=== PATIENT | female | born 1985 | race American Indian/Alaskan Native ===

== ENCOUNTER 2019-08-04 16:29 | Outpatient (CLI) | payer OTHER ==
[2019-08-04] MEDS ORDERED: LACTATED RINGERS 500 ML IV ONE (17:54)
[2019-08-04 18:17] LABS: Bacteria,Urine 1+ /HPF (Negative); Bilirubin,Urine NEG (Negative); Blood,Urine NEG (Negative); Color,Urine Yellow (Yellow); Mucus,Urine 1+ /HPF; Protein,Urine <15 mg/dL mg/dL (Negative); Urobilinogen,Urine < 2.0 mg/dL (<2.0)
[2019-08-04] MEDS ORDERED: cefTRIAXone/NS 1 GM/50 ML 1 GM/50 ML BAG IV ONE (19:00)
[2019-08-04 19:36] VITALS: BP 115/73
== END 2019-08-04 19:50 | disposition home or self-care (01) ==
LOC: TRG 16:29
PROVIDERS: ATTEND Obstetrics & Gynecology
DX: O26.892 Other specified pregnancy related conditions, second trimester (principal); R52 Pain, unspecified; O47.02 False labor before 37 completed weeks of gestation, second trimester; Z3A.24 24 weeks gestation of pregnancy
CPT/HCPCS: 81001; 87086; 96365; J0696; J7120

== ENCOUNTER 2019-11-13 09:45 | Inpatient (IN) | payer OTHER ==
--- NOTE | 2019-11-13 08:16 | History and Physical Report ---
History of Present Illness Date of examination: 11/13/19 Date of admission: 11/13/19 Chief complaint: scheduled repeat History of present illness: This is a 34 yo EDC 11/18/19 her for repeat csec. No complaints. hx of trich treated in this . 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 Past History Past Medical History: no pertinent history Past Surgical History: section (x2), other (hernia repair) [employer] History: herpes, trichomonas Social history: single. denies: smoking, alcohol abuse, prescription drug abuse - Obstetrical History Expected Date of Delivery: 11/18/19 Actual Gestation: 39 Week(s) 2 Day(s) : 8 Para: 4 Hx # Term Pregnancies: 4 Number of Pregnancies: 0 Spontaneous Abortions: 1 Induced : 1 Number of Living Children: 4 Medications and Allergies Allergies Allergy/AdvReac Type Severity Reaction Status Date / Time No Known Allergies Allergy Unverified 08/04/19 17:53 Review of Systems All systems: negative - Physical Exam Breasts: Positive: normal Cardiovascular: Regular rate, Normal S1 Lungs: Positive: Clear to auscultation, Normal air movement Abdomen: Positive: normal appearance, soft, normal bowel sounds. Negative: distention, tenderness, guarding Genitourinary (Female): Positive: normal external genitalia, normal perenium Vagina: Positive: normal moisture Uterus: Positive: normal size, normal contour Anus/Rectum: Positive: normal perianal skin Extremities: Positive: normal Deep Tendon Reflex Grade: Normal +2 - Obstetrical FHR: category 1 Uterine Contraction Pattern: Regular Results All other labs normal. Assessment and Plan A/P Planned repeat csec discussed r/b/a of procedure proceed with repeat csec x 3
[~2019-11-13 09:45] MED LIST: FAMOTIDINE 20 MG/2 ML INJ IV ONE; OXYTOCIN 20 UNIT/1000ML DRIP 20 UNITS/1,000 ML BAG IV SCH
[2019-11-13] MEDS ORDERED: ceFAZolin/Water 2 GM/20 ML 2 GM/20 ML SYRINGE IV NR (10:00)
[2019-11-13] MEDS ORDERED: BICITRA ORAL LIQD 30ML PO ONE (10:00)
[2019-11-13] MEDS ORDERED: METOCLOPRAMIDE 10 MG/2 ML INJ IV ONE (10:00)
[2019-11-13] MEDS ORDERED: FAMOTIDINE 20 MG/2 ML INJ IV ONE (10:00)
[2019-11-13] MEDS: LACTATED RINGERS 1,000 ML IV SCH ×4 (10:25→16:00)
[2019-11-13 10:41] LABS: Basophils % (Auto) 0.8 % (0.0-1.8); Eosinophils # (Auto) 0.1 K/mm3 (0.0-0.4); Eosinophils % (Auto) 1.5 % (0.0-4.3); Hematocrit 34.2 % (30.3-42.9); Hemoglobin 11.6 gm/dl (10.1-14.3); Lymphocytes # (Auto) 2.1 K/mm3 (1.2-5.4); Lymphocytes % (Auto) 34.1 % (13.4-35.0); Mean Corpuscular HGB Conc 34 % (30-34); Mean Corpuscular Volume 85 fl (79-97); Monocytes # (Auto) 0.7 K/mm3 (0.0-0.8); Monocytes % (Auto) 11.2 % (0.0-7.3); Platelet Count 194 K/mm3 (140-440); Red Blood Count 4.02 M/mm3 (3.65-5.03); Red Cell Distribution Width 13.8 % (13.2-15.2)
--- NOTE | 2019-11-13 11:26 | Anesthesia Consultation ---
Anesthesia Consult and Med Hx Date of service: 11/13/19 - Airway Anesthetic Teeth Evaluation: Good ROM Head & Neck: Adequate Mental/Hyoid Distance: Adequate Mallampati Class: Class II Intubation Access Assessment: Good - Pulmonary Exam CTA: Yes - Cardiac Exam Cardiac Exam: RRR - Pre-Operative Health Status ASA Pre-Surgery Classification: ASA2 Proposed Anesthetic Plan: Spinal - Pulmonary Hx Asthma: No - Cardiovascular System Hx Hypertension: No - Central Nervous System Hx Seizures: No Hx Psychiatric Problems: No - Endocrine Hx Renal Disease: No Hx Hypothyroidism: No Hx Hyperthyroidism: No - Hematic Hx Anemia: No Hx Sickle Cell Disease: No - Other Systems Hx Alcohol Use: No
[2019-11-13] MEDS ORDERED: NALOXONE 0.4 MG/1 ML INJ IV PRN ×2 (11:27→12:43)
[2019-11-13] MEDS ORDERED: PROMETHAZINE 25 MG RECT SUPP PR PRN (11:27)
[2019-11-13] MEDS ORDERED: ONDANSETRON 4 MG/2 ML INJ IV PRN (11:27)
[2019-11-13] MEDS ORDERED: HYDROmorphone 1 MG/1 ML INJ IV PRN (11:27)
[2019-11-13] MEDS ORDERED: PROMETHAZINE 25 MG TAB PO PRN (11:27)
--- NOTE | 2019-11-13 11:27 | Anesthesia Day of Surgery ---
Anesthesia Day of Surgery - Day of Surgery Patient Examined: Yes Patient H&P Reviewed: Yes Patient is NPO: Yes
[2019-11-13] MEDS ORDERED: DEXMEDETOMIDINE 200 MCG/2 ML VIAL IV ONE (11:32)
[2019-11-13 11:53] LABS: Hematocrit 29.3 % (30.3-42.9); Mean Corpuscular HGB Conc 34 % (30-34); Mean Corpuscular Volume 85 fl (79-97); Platelet Count 169 K/mm3 (140-440); Red Blood Count 3.46 M/mm3 (3.65-5.03); Red Cell Distribution Width 13.8 % (13.2-15.2)
[2019-11-13] MEDS ORDERED: KETAMINE/STERILE WATER 50 MG/ML SYRINGE ONE (12:14)
[2019-11-13 12:18] LABS: Bilirubin,Urine NEG (Negative); Blood,Urine NEG (Negative); Color,Urine Yellow (Yellow); Mucus,Urine FEW /HPF; Protein,Urine <15 mg/dL mg/dL (Negative); Urobilinogen,Urine < 2.0 mg/dL (<2.0)
[2019-11-13 12:19] LABS: Bacteria,Urine 1+ /HPF (Negative)
[2019-11-13 12:21] LABS: Alanine Aminotransferase 13 units/L (7-56); Uric Acid 6.3 mg/dL (3.5-7.6)
[2019-11-13] MEDS ORDERED: dexAMETHasone 20 MG/5 ML VIAL ONE (12:40)
[2019-11-13] MEDS ORDERED: diphenhydrAMINE 50 MG/ML VIAL ONE (12:40)
[2019-11-13] MEDS ORDERED: KETOROLAC 30 MG/1 ML INJ ONE (12:40)
[2019-11-13] MEDS ORDERED: PHENYLEPHRINE/NS 1,000 MCG/10 ML SYRINGE (OR USE) IV ONE (12:40)
[2019-11-13] MEDS ORDERED: KETOROLAC 30 MG/1 ML INJ IV PRN ×2 (12:43)
[2019-11-13] MEDS ORDERED: ACETAMINOPHEN 325 MG TAB PO PRN (12:43)
[2019-11-13] MEDS ORDERED: HYDROCORTISONE 25 MG RECTAL SUPP PR PRN (12:43)
[2019-11-13] MEDS ORDERED: MORPHINE 4 MG/1 ML INJ IV PRN (12:43)
[2019-11-13] MEDS ORDERED: LANOLIN/ZINC/DIMETHICONE (LANSINOH) 7 GM TP PRN (12:43)
[2019-11-13] MEDS ORDERED: WITCH HAZEL/ GLYCERIN PAD TP PRN (12:43)
[2019-11-13] MEDS ORDERED: MAGNESIUM HYDROXIDE (MOM) ORAL LIQD UDC PO PRN (12:43)
[2019-11-13] MEDS ORDERED: oxyCODONE /ACETAMINOPHEN 5-325MG TAB PO PRN (12:43)
[2019-11-13] MEDS ORDERED: SENNOSIDES 8.6 MG TAB PO PRN (12:43)
--- NOTE | 2019-11-13 12:46 | Operative Report ---
Operative Report Operative Report: Date of procedure: November 13, 2019 Preoperative diagnosis: 1) IUP at 39 weeks 2) preevious x2 3) Postoperative diagnosis: Same Procedure: Primary low transverse section Surgeon: Rebecca Guzman MD Anesthesia: Regional Findings: 1) Viable female , Apgars 8 and 9, weight 7 pounds 4 oz in cephalic presentation. 2) Normal-appearing uterus ovaries and tubes Estimated blood loss: 800 mL IV fluids: 800 mL Urine output: 50 mL, clear at the end of the procedure Drains: Riley to gravity Specimens: Placenta to pathology Complications:None. Counts correct x 3 Disposition: Stable to PACU Indication for procedure: Pt is a 34 year old G8ap4 at 38w1d with hs cof previous csec x2 here for scheduled repeat Operation in detail: After the risks, benefits, alternatives and complications were explained to the patient she gave informed consent for the procedure. She was subsequently taken to the operating room where regional anesthesia was noted to be adequate. She was subsequently placed in the dorsal supine position with leftward tilt and prepped and draped in a normal sterile fashion. heart tones were noted prior to incision. A timeout was performed. A Pfannenstiel skin incision was made with the knife and carried down to the layer of the fascia with the Bovie. The fascia was incised in the midline and the fascial incision was extended bilaterally with the Bovie. The fascial incision was then stretched. The rectus muscles were then in the midline and partially transected for adequate visualization. The peritoneum was then entered bluntly. The peritoneal incision was extended with good visualization of the bladder. The peritoneal incision was then stretched. An Mohan retractor was placed. The bladder blade was then placed. A transverse incision was made in the lower uterine segment with a knife and extended bilaterally with the bandage scissors. Amniotomy was performed with egress of clear fluid. head delivered with ease, followed by shoulders and body. bulb suctioned at delivery. Cord clamped and cut. handed to NICU staff in attendance. The placenta was then delivered manually. The uterus was then exteriorized and cleared of all clots and debris. The hysterotomy was then reapproximated with 0 Vicryl in a running locked fashion. A second layer of the same suture was used in imbricating fashion. The hysterotomy was inspected and hemostasis was noted. The gutters were irrigated and cleared of all clots and debris. The hysterotomy was again inspected and noted to be hemostatic. Surgicel was placed over the hysterotomy. The uterus was placed back into the peritoneal cavity. The Mohan retractor was removed. The peritoneum was reapproximated with 2-0 Vicryl in a running fashion incorporating the rectus muscles. Surgicel was placed over the rectus muscles. The fascia was reapproximated with 0 PDS in a running fashion. The subcutaneous tissue was reapproximated with 0-Vicryl in a running fashion. The skin was reapproximated with 4-0 Vicryl in a subcuticular fashion. The incision was then covered with steri strips and a pressure dressing. The procedure was then ended. The patient tolerated the procedure well and was taken to the PACU in stable condition. All instrument, lap, and needle counts were correct 3.
--- NOTE | 2019-11-13 12:56 | Procedure Note ---
OB Delivery Note - Delivery Date of Delivery: 11/13/19 Surgeon: SANYA KRUGER Estimated blood loss: other (800cc) - Section Preop diagnosis: repeat Postop diagnosis: same section procedure: section Disposition: PACU Complications: none Narrative: see op note - Infant A at 1 minute: 8 at 5 minutes: 9 Gender: Female (7 pounds 4 oz)
[2019-11-13] MEDS ORDERED: OXYTOCIN 20 UNIT/1000ML DRIP 20 UNITS/1,000 ML BAG IV SCH ×2 (13:00→16:00)
[2019-11-13] MEDS ORDERED: D5W/LACTATED RINGERS 1,000 ML IV SCH (13:00)
--- NOTE | 2019-11-13 13:15 | Progress Note ---
Spinal Anesthesia Block - Spinal Anesthesia Block Start Time: 11:52 Stop Time: 11:57 Performed by:: DERICK SEBASTIAN Procedure: Spinal anesthesia block is being performed for [repeat ]. H&P, labs have been reviewed. Patient's questions and concerns have been answered. Informed consent has been performed. Timeout has was performed. Patient in sitting position on side of bed. Sterile prep and drape was performed. 3 mL 1% lidocaine skin wheal at L 3-L 4. Needle introducer advanced. 25-gauge spinal needle advanced, clear CSF negative blood. 1.5 mL 0.75% bupivacaine with 10 mcg Precedex spinal dose was given. All needles removed. Patient tolerated procedure well.
[2019-11-13] MEDS ORDERED: MAGNESIUM SULFATE 4 GM/100 ML BAG IV ONE (15:07)
[2019-11-13] MEDS ORDERED: miSOPROStol 200 MCG TAB ONE (15:59)
[2019-11-13] MEDS ORDERED: fentaNYL 100 MCG/2 ML INJ ONE (16:00)
[2019-11-13] MEDS ORDERED: MAGNESIUM SULFATE 40GM/1000ML 40 GM/1,000 ML BAG IV SCH (16:00)
[2019-11-13] MEDS ORDERED: miSOPROStol 200 MCG TAB PR ONE (16:00)
[2019-11-13 16:22] LABS: Hematocrit 28.3 % (30.3-42.9); Hemoglobin 9.6 gm/dl (10.1-14.3); Mean Corpuscular HGB Conc 34 % (30-34); Mean Corpuscular Volume 86 fl (79-97); Platelet Count 191 K/mm3 (140-440); Red Blood Count 3.31 M/mm3 (3.65-5.03); Red Cell Distribution Width 13.7 % (13.2-15.2)
[2019-11-13] MEDS ORDERED: LACTATED RINGERS 1,000 ML IV SCH (17:29)
--- NOTE | 2019-11-13 21:43 | Post Anesthesia Evaluation ---
- Post Anesthesia Evaluation Patient Participated: Yes Airway Patent: Yes Stable Respiratory Function: Yes Nausea/Vomiting: No Temp > 96.8F: Yes Pain Manageable: Yes Adequeate Hydration: Yes Anesthesia Complications: No Block Receding Appropriately: Yes Patient on Ventilator: No
[2019-11-14 01:38] LABS: Hematocrit 24.1 % (30.3-42.9); Hemoglobin 8.2 gm/dl (10.1-14.3)
[2019-11-14] MEDS: MORPHINE 2 MG/1 ML INJ IV PRN ×2 (03:16→19:51)
--- NOTE | 2019-11-14 07:08 | Progress Note ---
Assessment and Plan A/P POD#1 repeat x3 Hypertension on ma for 24 hrs PIH w/u neg transfer after 12p to [facility] Subjective - Subjective Date of service: 11/14/19 Principal diagnosis: , pree Interval history: This is a 34 yo EDC 11/18/19 her for repeat csec. No complaints. hx of trich treated in this . 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 Patient reports: appetite normal, voiding normally, pain well controlled, flatus [place]: doing well Objective - Vital Signs Latest vital signs: Vital Signs Temp Pulse Resp BP BP Pulse Ox 11/14/19 07:01 69 92 11/14/19 06:56 71 100 11/14/19 06:51 75 100 11/14/19 06:46 71 99 11/14/19 06:41 74 99 11/14/19 06:36 70 100 11/14/19 06:31 72 99 11/14/19 06:26 73 99 11/14/19 06:21 83 100 11/14/19 06:18 71 129/85 11/14/19 06:16 74 98 11/14/19 06:11 70 99 11/14/19 06:06 71 98 11/14/19 06:03 62 118/79 11/14/19 06:01 63 99 11/14/19 05:56 73 100 11/14/19 05:51 62 99 11/14/19 05:48 67 117/76 11/14/19 05:46 78 99 11/14/19 05:41 71 99 11/14/19 05:36 65 99 11/14/19 05:33 71 117/76 11/14/19 05:31 68 99 11/14/19 05:26 73 99 11/14/19 05:21 68 100 11/14/19 05:18 65 119/74 11/14/19 05:16 69 98 11/14/19 05:11 68 99 11/14/19 05:06 66 99 11/14/19 05:03 74 116/74 11/14/19 05:01 73 98 11/14/19 04:56 68 99 11/14/19 04:51 70 99 11/14/19 04:48 69 116/74 11/14/19 04:46 74 98 11/14/19 04:41 73 99 05 04:36 71 100 05 04:33 76 119/75 11/14/19 04:31 74 99 05 04:26 88 98 11/14/19 04:21 80 99 05 04:18 74 120/74 05 04:16 79 98 05 04:11 77 98 11/14/19 04:06 80 97 11/14/19 04:03 81 117/71 11/14/19 04:01 84 96 11/14/19 03:56 85 97 11/14/19 03:51 80 98 11/14/19 03:48 76 115/69 11/14/19 03:46 75 97 11/14/19 03:41 74 98 11/14/19 03:36 75 97 11/14/19 03:33 81 116/69 11/14/19 03:31 80 98 11/14/19 03:26 83 96 11/14/19 03:21 87 99 11/14/19 03:18 75 122/73 11/14/19 03:16 78 99 11/14/19 03:11 83 98 11/14/19 03:06 64 97 11/14/19 03:04 91 H 109/60 11/14/19 03:03 90 94 11/14/19 03:01 99 H 97 11/14/19 02:56 80 98 11/14/19 02:51 77 98 11/14/19 02:48 75 130/74 11/14/19 02:46 75 97 11/14/19 02:41 75 98 11/14/19 02:36 71 97 11/14/19 02:33 76 126/75 11/14/19 02:31 79 99 05 02:26 74 96 11/14/19 02:21 89 98 11/14/19 02:18 72 123/76 11/14/19 02:16 73 97 11/14/19 02:11 82 98 11/14/19 02:06 72 98 11/14/19 02:03 80 119/75 11/14/19 02:01 78 98 05 01:56 73 98 05 01:51 78 100 11/14/19 01:48 84 115/73 11/14/19 01:46 90 97 11/14/19 01:41 82 97 11/14/19 01:36 77 97 11/14/19 01:33 82 118/72 11/14/19 01:31 73 98 11/14/19 01:26 77 98 11/14/19 01:21 77 97 11/14/19 01:18 80 111/68 11/14/19 01:16 81 97 11/14/19 01:11 76 99 11/14/19 01:06 88 99 11/14/19 01:03 86 102/59 11/14/19 01:01 88 99 11/14/19 00:56 88 99 11/14/19 00:51 93 H 99 11/14/19 00:48 86 121/74 11/14/19 00:46 87 97 11/14/19 00:41 82 97 11/14/19 00:36 91 H 99 11/14/19 00:33 81 123/74 11/14/19 00:31 82 98 11/14/19 00:26 77 98 11/14/19 00:21 97 H 99 11/14/19 00:18 83 121/72 11/14/19 00:16 86 99 11/14/19 00:11 78 98 11/14/19 00:06 87 98 11/14/19 00:03 88 127/80 11/14/19 00:01 78 98 11/13/19 23:56 74 99 11/13/19 23:51 72 99 11/13/19 23:48 71 120/73 11/13/19 23:46 75 98 11/13/19 23:41 70 98 11/13/19 23:36 70 98 11/13/19 23:33 68 123/80 05 23:31 65 100 11/13/19 23:26 85 97 11/13/19 23:23 83 94 11/13/19 23:21 86 99 11/13/19 23:19 95 H 78/48 11/13/19 23:16 91 H 97 11/13/19 23:11 93 H 97 11/13/19 23:06 95 H 98 11/13/19 23:03 97 H 106/64 11/13/19 23:01 104 H 99 11/13/19 22:56 83 98 11/13/19 22:51 76 98 11/13/19 22:48 105 H 114/68 11/13/19 22:46 105 H 98 11/13/19 22:41 89 97 11/13/19 22:36 82 97 11/13/19 22:33 83 127/75 11/13/19 22:31 88 97 11/13/19 22:26 85 97 11/13/19 22:21 93 H 98 11/13/19 22:18 79 123/78 11/13/19 22:16 82 98 11/13/19 22:11 77 98 11/13/19 22:06 74 97 11/13/19 22:03 81 115/78 11/13/19 22:01 84 98 11/13/19 21:56 74 99 11/13/19 21:51 89 95 11/13/19 21:48 76 117/78 94 11/13/19 21:46 94 H 98 11/13/19 21:41 100 H 99 11/13/19 21:36 76 98 11/13/19 21:33 81 118/74 11/13/19 21:31 87 98 11/13/19 21:26 90 97 11/13/19 21:21 89 97 11/13/19 21:18 85 123/77 11/13/19 21:16 84 98 11/13/19 21:11 85 98 11/13/19 21:06 86 98 11/13/19 21:03 73 122/80 11/13/19 21:01 73 98 11/13/19 20:56 87 98 11/13/19 20:51 86 99 11/13/19 20:48 82 119/76 11/13/19 20:46 84 99 11/13/19 20:41 78 98 11/13/19 20:36 76 99 11/13/19 20:33 84 117/73 11/13/19 20:31 80 99 11/13/19 20:26 75 97 11/13/19 20:21 81 96 11/13/19 20:18 85 117/72 11/13/19 20:16 85 97 11/13/19 20:11 90 98 11/13/19 20:06 86 99 11/13/19 20:04 98.6 F 83 18 121/80 11/13/19 20:03 77 121/80 0511/20 20:02 87 94 11/13/19 20:01 83 99 11/13/19 19:56 75 99 11/13/19 19:51 68 98 11/13/19 19:49 75 120/81 11/13/19 19:48 86 94 11/13/19 19:46 86 96 11/13/19 19:41 101 H 99 11/13/19 19:36 82 97 11/13/19 19:33 93 H 112/74 11/13/19 19:31 94 H 98 11/13/19 19:26 85 98 11/13/19 19:21 77 98 11/13/19 19:18 90 112/73 11/13/19 19:16 84 98 11/13/19 19:11 77 99 11/13/19 19:06 76 97 11/13/19 19:03 80 111/72 11/13/19 19:01 77 98 11/13/19 18:56 69 99 11/13/19 18:51 73 98 11/13/19 18:48 84 101/63 11/13/19 18:46 112 H 98 11/13/19 18:41 98 H 96 11/13/19 18:36 93 H 98 11/13/19 18:33 79 119/76 11/13/19 18:31 76 98 11/13/19 18:26 87 98 11/13/19 18:21 78 97 11/13/19 18:18 75 122/75 11/13/19 18:16 74 98 11/13/19 18:11 67 98 11/13/19 18:06 66 98 11/13/19 18:03 67 127/74 11/13/19 18:01 68 99 11/13/19 17:56 73 99 11/13/19 17:51 69 99 11/13/19 17:46 68 99 11/13/19 17:44 81 128/84 11/13/19 17:41 69 98 11/13/19 17:39 65 122/79 11/13/19 17:36 64 96 11/13/19 17:34 66 134/80 11/13/19 17:31 71 98 11/13/19 17:29 62 131/88 11/13/19 17:26 69 98 11/13/19 17:25 70 128/85 11/13/19 17:23 99.6 F 11/13/19 17:21 78 98 11/13/19 17:19 94 H 147/82 11/13/19 17:16 76 135/77 97 11/13/19 17:11 72 99 11/13/19 17:06 99 H 95 11/13/19 17:01 87 99 11/13/19 17:00 84 182/101 11/13/19 16:57 81 99 11/13/19 16:55 176 H 169/115 11/13/19 16:51 79 99 11/13/19 16:46 75 153/72 98 11/13/19 16:41 70 99 11/13/19 16:40 68 172/81 11/13/19 16:36 68 98 11/13/19 16:31 63 97 11/13/19 16:29 61 124/81 11/13/19 16:26 59 L 100 11/13/19 16:24 54 L 115/74 11/13/19 16:21 54 L 98 11/13/19 16:19 53 L 106/67 11/13/19 16:16 52 L 94 11/13/19 16:14 54 L 99/59 11/13/19 16:12 57 L 92 11/13/19 16:11 56 L 97 11/13/19 16:10 56 L 74/47 11/13/19 16:07 60 95 11/13/19 16:05 61 89 11/13/19 16:04 57 L 67/43 11/13/19 16:02 57 L 67/41 11/13/19 15:59 61 62/39 11/13/19 15:54 68 63/35 11/13/19 15:52 76 60/39 11/13/19 15:50 77 69/40 11/13/19 15:44 73 93/60 11/13/19 15:40 60 113/75 11/13/19 15:37 97.7 F 49 L 18 163/89 11/13/19 15:35 49 L 163/89 11/13/19 13:50 97.4 F L 50 L 14 138/87 100 11/13/19 13:35 48 L 14 135/89 97 11/13/19 13:20 47 L 14 129/84 100 11/13/19 13:05 58 L 14 129/87 100 11/13/19 13:00 54 L 10 L 121/87 100 11/13/19 12:55 97.6 F 55 L 13 131/81 98 11/13/19 11:16 58 L 151/94 11/13/19 10:45 97.9 F 18 11/13/19 10:26 70 147/105 11/13/19 10:25 80 149/105 Intake and Output 11/13/19 11/13/19 11/14/19 15:59 23:59 07:59 Intake Total 3550 Output Total 2489 369 3270 Balance 1900 -700 -1550 Intake: IV 3550 Lactated Ringers 1,000 ml 2950 @ 1000 mls/hr IV PREOP [facility] Rx#:[id number] Output: Urine 0115 384 9842 Indwelling Catheter 452 330 5623 Uretheral (Riley) 650 Other: Total, Output Amount 600 300 650 Weight 67.585 kg Estimated Blood Loss 800 - Exam Breasts: Present: normal Cardiovascular: Present: Regular rate, Normal S1 Lungs: Present: Clear to auscultation, Normal air movement Abdomen: Present: normal appearance, soft, normal bowel sounds. Absent: distention, tenderness, guarding Vulva: both: normal Uterus: Present: normal, firm, fundal height below umbilicus. Absent: bogginess, tenderness Extremities: Present: normal Deep Tendon Reflex Grade: Normal +2 Incision: Present: normal, dry - Labs Labs: Abnormal lab results 11/13/19 11/13/19 11/13/19 Range/Units 10:15 11:41 11:41 RBC 3.46 L (3.65-5.03) M/mm3 Hgb 10.0 L (10.1-14.3) gm/dl Hct 29.3 L (30.3-42.9) % [place] % (Auto) 11.2 H (0.0-7.3) % Lactate Dehydrogenase 294 H (91-180) units/L 11/13/19 11/14/19 Range/Units 16:15 01:14 RBC 3.31 L (3.65-5.03) M/mm3 Hgb 9.6 L 8.2 L (10.1-14.3) gm/dl Hct 28.3 L 24.1 L (30.3-42.9) % [place] % (Auto) (0.0-7.3) % Lactate Dehydrogenase (91-180) units/L
[2019-11-14 08:17] LABS: Basophils % (Auto) 0.1 % (0.0-1.8); Hematocrit 23.2 % (30.3-42.9); Lymphocytes # (Auto) 1.7 K/mm3 (1.2-5.4); Mean Corpuscular HGB Conc 34 % (30-34); Mean Corpuscular Volume 85 fl (79-97); Monocytes # (Auto) 1.1 K/mm3 (0.0-0.8); Monocytes % (Auto) 9.5 % (0.0-7.3); Platelet Count 180 K/mm3 (140-440); Red Blood Count 2.74 M/mm3 (3.65-5.03); Red Cell Distribution Width 13.8 % (13.2-15.2)
[2019-11-14] MEDS ORDERED: FERROUS SULFATE 325 MG TAB PO SCH (10:00)
[2019-11-14] MEDS ORDERED: DIPHtheria,PERTUSSIS(ACELL),TETANUS VACCINE/PF 0.5 ML VIAL IM ONE (12:00)
[2019-11-14] MEDS ORDERED: MEASLES, MUMPS & RUBELLA 12,500 UNIT/0.5 ML VACCINE SUB-Q ONE (12:00)
[2019-11-14] MEDS: IBUPROFEN 800 MG TAB PO PRN (12:10)
[2019-11-14] MEDS: HYDROcodone/ACETAMINOPHEN 5-325 MG TAB PO PRN (14:07)
[2019-11-14] MEDS: SIMETHICONE 80 MG CHEW TAB PO PRN (19:51)
[2019-11-14] MEDS: cefTRIAXone/NS 1 GM/50 ML 1 GM/50 ML BAG IV SCH (20:02)
[2019-11-15] MEDS: HYDROcodone/ACETAMINOPHEN 5-325 MG TAB PO PRN ×2 (00:28→06:31)
--- NOTE | 2019-11-15 08:24 | Progress Note ---
Assessment and Plan A: POD2 s/p repeat LTCS, s/p mag sulfate Vital signs stable Acute on chronic anemia due to and blood loss P: Ferrous sulfate supplementation Routine pp care Anticipate d/c to home on POD3 Subjective - Subjective Date of service: 11/15/19 Principal diagnosis: , pree Interval history: Pt is POD2 s/p repeat LTCS, s/p mag sulfate for preeclampsia Patient reports: appetite normal, voiding normally, pain well controlled, flatus, ambulating normally : doing well, nursing well Objective - Vital Signs Latest vital signs: Vital Signs Temp Pulse Resp BP BP Pulse Ox 11/15/19 06:31 18 11/15/19 00:28 18 11/15/19 00:16 98.2 F 61 20 129/76 100 11/14/19 19:51 18 11/14/19 16:33 97.5 F L 65 16 111/69 98 11/14/19 13:40 98 F 75 18 120/87 100 11/14/19 12:47 71 100 11/14/19 12:42 67 100 11/14/19 12:37 79 98 11/14/19 12:32 70 100 11/14/19 12:27 83 100 11/14/19 12:25 78 120/80 11/14/19 12:22 87 100 11/14/19 12:17 81 100 11/14/19 12:12 74 100 11/14/19 12:09 71 94 11/14/19 12:07 75 84 11/14/19 12:03 72 77 L 11/14/19 12:02 70 96 11/14/19 11:56 75 99 11/14/19 11:51 75 99 11/14/19 11:46 70 98 11/14/19 11:41 76 99 11/14/19 11:40 80 112/72 11/14/19 11:36 81 99 11/14/19 11:34 77 89 11/14/19 11:31 84 99 11/14/19 11:30 97.8 F 15 11/14/19 11:26 65 99 11/14/19 11:21 71 99 11/14/19 11:16 68 100 11/14/19 11:11 82 99 11/14/19 11:06 74 98 11/14/19 11:01 79 98 11/14/19 10:56 74 98 11/14/19 10:55 74 114/73 11/14/19 10:51 91 H 99 11/14/19 10:46 79 99 11/14/19 10:41 74 99 11/14/19 10:36 74 98 11/14/19 10:31 69 99 11/14/19 10:26 74 98 11/14/19 10:21 69 98 11/14/19 10:16 76 98 11/14/19 10:11 75 99 11/14/19 10:10 75 121/77 11/14/19 10:06 80 97 11/14/19 10:05 83 92 11/14/19 10:01 90 100 11/14/19 09:56 74 99 11/14/19 09:51 74 99 11/14/19 09:46 74 99 11/14/19 09:45 98.2 F 18 11/14/19 09:41 74 99 11/14/19 09:36 79 100 11/14/19 09:31 80 99 11/14/19 09:26 85 100 11/14/19 09:25 76 117/75 11/14/19 09:21 77 100 11/14/19 09:16 75 100 11/14/19 09:11 74 100 11/14/19 09:06 49 L 93 11/14/19 09:04 72 92 11/14/19 09:01 77 98 11/14/19 08:56 76 99 11/14/19 08:51 81 96 11/14/19 08:46 80 99 11/14/19 08:41 89 99 11/14/19 08:40 81 115/75 11/14/19 08:36 76 99 11/14/19 08:31 82 99 11/14/19 08:26 75 99 Intake and Output 11/14/19 11/15/19 11/15/19 23:59 07:59 15:59 Intake Total 120 240 Balance 120 240 Intake: Oral 120 240 Other: Total, Intake Amount 120 240 # Voids Void 1 1 - Exam Lungs: Present: Normal air movement Abdomen: Present: soft. Absent: distention Uterus: Present: firm, fundal height below umbilicus Extremities: Present: normal Incision: Present: dressed - Labs Labs: Abnormal lab results 11/14/19 Range/Units 07:44 Magnesium 7.50 H (1.7-2.3) mg/dL
[2019-11-15] MEDS: FERROUS SULFATE 325 MG TAB PO SCH ×2 (09:48→22:36)
[2019-11-15] MEDS: cefTRIAXone/NS 1 GM/50 ML 1 GM/50 ML BAG IV SCH (10:17)
[2019-11-15] MEDS: SIMETHICONE 80 MG CHEW TAB PO PRN (15:23)
[2019-11-15] MEDS: IBUPROFEN 800 MG TAB PO PRN (15:42)
[2019-11-16] MEDS: IBUPROFEN 800 MG TAB PO PRN (05:31)
--- NOTE | 2019-11-16 07:41 | Progress Note ---
Assessment and Plan A: POD3 s/p repeat LTCS, s/p mag sulfate Vital signs stable Acute on chronic anemia due to and blood loss P: Ferrous sulfate supplementation Routine pp care d/c to home today Subjective - Subjective Date of service: 11/16/19 Principal diagnosis: , pree Interval history: Pt is POD3 s/p repeat LTCS, s/p mag sulfate for preeclampsia Patient reports: appetite normal, voiding normally, pain well controlled, flatus, ambulating normally : doing well Objective - Vital Signs Latest vital signs: Vital Signs Temp Pulse Resp BP BP Pulse Ox 11/16/19 01:51 99.2 F 69 18 113/61 100 11/15/19 20:48 99.1 F 64 16 125/81 100 11/15/19 16:00 98 F 64 20 124/78 11/15/19 08:45 98.7 F 64 20 109/61 Intake and Output 11/15/19 11/15/19 11/16/19 15:59 23:59 07:59 Intake Total 410 560 360 Balance 410 560 360 Intake: IV 50 ROCEPHIN/NS 1 GM/50 ML 1 50 gm In 50 ml @ 100 mls/hr IV Q24HR [facility] Rx#: [id number] Oral 360 560 Intake, Free Water 360 Other: Total, Intake Amount 120 240 # Voids Void 1 1 2 - Exam Lungs: Present: Normal air movement Abdomen: Present: soft. Absent: distention Uterus: Present: firm, fundal height below umbilicus. Absent: bogginess Extremities: Present: normal Incision: Present: normal, dry, intact
--- NOTE | 2019-11-16 07:44 | Discharge Summary ---
Providers - Providers Date of Admission: 11/13/19 09:45 Date of discharge: 11/16/19 Attending physician: SANYA KRUGER MD Primary care physician: SANYA KRUGER MD Hospitalization Reason for admission: section, IUP at term Delivery: Procedure: repeat low transverse Episiotomy: none Laceration: none Incision: normal, dry, intact Other procedures: none complications: other (preeclampsia) Discharge diagnosis: IUP at term delivered Hospital course: Pt underwent repeat LTCS and was diagnosed with preeclampsia with severe features. She received MGSO4 x24 hours. Condition at discharge: Good Disposition: DC-01 TO HOME OR SELFCARE Plan - Discharge Medications Prescriptions: Ferrous Sulfate [Feosol 325 MG tab] 325 mg PO BID #30 tablet labetaloL [Labetalol 100mg TAB] 100 mg PO BID #30 tablet Nitrofurantoin [place]/M-Cryst [Macrobid CAP] 100 mg PO Q12HR #14 capsule Ibuprofen [Motrin] 600 mg PO Q8H PRN #30 tablet PRN Reason: Pain - Provider Discharge Summary Activity: routine, no sex for 6 weeks, no heavy lifting 4 weeks, no strenuous exercise Diet: routine Instructions: routine Additional instructions: [] Smoking cessation referral if applicable(refer to patient education folder for contact #) [] Refer to [facility]'s [facility] Booklet Call your doctor immediately for: * Fever > 100.5 * Heavy vaginal bleeding ( >1 pad per hour) * Severe persistent headache * Shortness of breath * Reddened, hot, painful area to leg or breast * Drainage or odor from incision. * Keep incision clean and dry at all times and follow doctor's instructions regarding bathing/showering - Follow up plan Follow up: SANYA KRUGER MD [Primary Care Provider] - 7 Days
[2019-11-16 09:07] VITALS: BP 116/77
== END 2019-11-16 09:30 | disposition home or self-care (01) | DRG 765 ==
LOC: APU 09:45 → LD 16:17 → OB 11-14 13:50
PROVIDERS: ADMIT Obstetrics & Gynecology; ATTEND Obstetrics & Gynecology
PROC: 10D00Z1 Extraction of Products of Conception, Low, Open Approach (ICD-10-PCS; principal; 2019-11-13)
PROC: 3E0234Z Introduction of Serum, Toxoid and Vaccine into Muscle, Percutaneous Approach (ICD-10-PCS; 2019-11-14)
PROC: 3E0134Z Introduction of Serum, Toxoid and Vaccine into Subcutaneous Tissue, Percutaneous Approach (ICD-10-PCS; 2019-11-14)
DX: O34.211 Maternal care for low transverse scar from previous cesarean delivery (principal); O98.52 Other viral diseases complicating childbirth; D62 Acute posthemorrhagic anemia; O11.4 Pre-existing hypertension with pre-eclampsia, complicating childbirth; B00.9 Herpesviral infection, unspecified; O99.02 Anemia complicating childbirth; Z3A.39 39 weeks gestation of pregnancy; Z37.0 Single live birth; Z23 Encounter for immunization
CPT/HCPCS: 36415; 81001; 82565; 83615; 83735; 84450; 84460; 84550; 85014; 85018; 85025; 85027; 86592; 86850; 86900; 86901; 90707; 90715; G0378; J0690; J0696; J1100; J1200; J1885; J2270; J2370; J2405; J2590; J2765; J3010; J3475; J3490; J7120